=== PATIENT | female | born 1930 | race Caucasian/White ===

== ENCOUNTER 2016-08-20 13:09 | Emergency (ER) | payer MEDICARE, OTHER ==
[2016-08-20 13:32] VITALS: BP 106/57
[2016-08-20] MEDS ORDERED: Acetaminophen Soln 650 MG/20.3 ML UD Cup PO ONE (13:56)
--- NOTE | 2016-08-20 13:56 | EDM.PDOC ---
ED HPI HEAD INJURY - General Chief Complaint: Head Injury Stated Complaint: FALL/HEAD INJURY Time Seen by Provider: 08/20/16 13:38 Source of Information: Reports: Patient - History of Present Illness INITIAL COMMENTS - FREE TEXT/NARRATIVE: Patient reports tripping over a rug around 0900hrs today. She fell forward, landing on her knees and then hitting her head. She denies LOC. Currently anticoagulated with Eliquis for atrial fibrillation. Her [id number] noticed the significant contusion a few hours later while patient was preparing lenten lunch at [facility]. Patient reports knee pain, worse on the right. Denies headache, N/V, dizziness or change in vision. - Related Data Allergies/ADRs: Allergies Allergy/AdvReac Type Severity Reaction Status Date / Time No Known Allergies Allergy Verified 11/17/13 14:37 Home Meds: Home Meds Acetaminophen [Tylenol] 1 tab PO ASDIRECTED PRN 01/23/14 [History] Aspirin [Halfprin] 1 tab PO DAILY 01/23/14 [History] Lisinopril [Zestril] 1 tab PO DAILY 01/23/14 [History] Metoprolol Tartrate 1 tab PO BID 01/23/14 [History] Omeprazole [Prilosec] 1 tab PO DAILY 01/23/14 [History] Ondansetron [Zofran] 4 mg BUCCAL Q6H PRN #15 tab 01/23/14 [Rx] Social & Family History - Tobacco Use Smoking Status *Q: Never Smoker Second Hand Smoke Exposure: No - Alcohol Use Days Per Week of Alcohol Use: 0 - Recreational Drug Use Recreational Drug Use: No ED ROS GENERAL - Review of Systems Review Of Systems: See Below Constitutional: Reports: no symptoms HEENT: Denies: Ear discharge, Nosebleed, Vision change Respiratory: Reports: No Symptoms Cardiovascular: Reports: No symptoms Musculoskeletal: Reports: joint pain (Bilateral knee pain. ) Skin: Reports: lumps (Contusion to forehead ) Neurological: Denies: Confusion, Dizziness, Headache, Numbness, Syncope, Tingling Hematologic/Lymphatic: Reports: other (She is on Eliquis for atrial fibrillation.) ED EXAM, HEAD INJURY - Physical Exam Exam: See Below Exam Limited By: No limitations General Appearance: alert, WD/WN, no apparent distress Head: scalp lacerations, scalp ecchymosis, scalp hematoma, scalp tenderness Eyes: bilateral eye: PERRL Ears: normal external exam, normal canal, normal TMs Nose: normal inspection, normal mucousa, dried blood (Dried blood.) Respiratory: no respiratory distress, normal breath sounds Cardiovascular: normal peripheral pulses, irregularly irregular Extremities: normal range of motion, tenderness (Bilateral knee swelling and tenderness, R>L. Anterior bruising. FROM bilaterally.) Neurologic: normal mood/affect, oriented x 3 Skin: Normal color, Warm/dry, Other (Laceration to left forehead. ) - Aurora Coma Score Best Eye Response (Nikos): (4) open spontaneously Best Verbal Response (Aurora): (5) oriented Best Motor Response (Aurora): (6) obeys commands ED LACERATION/WOUND & MAURA PROC - Laceration/Wound Repair Head Lac/wound length in cm: 1.5 Appearance: superficial Distal NVT: neuro & vascular intact Skin prep: saline Closed with: dermabond Tetanus status addressed: Yes Course - Vital Signs Last Recorded V/S: Last Vital Signs Temp 98.1 F 08/20/16 13:27 Pulse 65 08/20/16 15:10 Resp 18 08/20/16 13:27 BP 106/57 L 08/20/16 13:27 Pulse Ox 98 08/20/16 15:10 - Orders/Labs/Meds Meds: Medications Discontinued Medications Generic Name Dose Route Start Last Admin Trade Name Tiq PRN Reason Stop Dose Admin Acetaminophen 650 mg 08/20/16 13:56 08/20/16 14:14 Tylenol PO 08/20/16 13:57 650 mg ONETIME ONE Administration - Re-Assessments/Exams Free Text/Narrative Re-Assessment/Exam: Mild contusion to left knee. Xray of right knee obtained due to level of swelling and pain to joint line, this demonstrated soft tissue swelling and right knee prosthesis that is is proper alignment. Laceration to forehead repaired with dermabond. Neurologic exam was normal. CT head demonstrates senescent change, mild soft tissue hematoma within the frontal scalp and NO acute intracranial abnormality or skull fracture. Will discharge home, recommend Tylenol and ice for her knee as this took care of her pain here. Monitor for behavior changes, changes in vision, headache or dizziness. She is to follow-up with PCP next week or return to ER if needed. Patient will be driven home by her [id number] today. 08/20/16 20:27 Departure - Departure Time of Disposition: 14:49 Disposition: Home, Self-Care 01 Condition: good Clinical Impression: Laceration Head injury Qualifiers: Encounter type: initial encounter Qualified Code(s): S09.90XA - Unspecified injury of head, initial encounter Injury of right knee Qualifiers: Encounter type: initial encounter Qualified Code(s): S89.91XA - Unspecified injury of right lower leg, initial encounter Instructions: Knee Pain, Head Injury, Adult, [id number], Laceration Care, Adult, [id number] Referrals: Ze Hsieh MD [Primary Care Provider] - Forms: ED Department Discharge Additional Instructions: Rest, activity as tolerated. Ice knee 15 minutes every 2-3 hours. Tylenol 650mg every 4-6 hours as needed for pain. If you should have dizziness, headache or other change you will need to be seen in the ER. Otherwise follow-up with Dr Hsieh in the clinic next week.
--- NOTE | 2016-08-20 14:38 | CR ---
Right knee: AP and lateral views of the right knee were obtained. Comparison: No previous right knee study other than exam obtained prior to prosthesis placement dated 02/11/09. Right knee prosthesis is seen. Components are aligned. Soft tissue swelling is seen anteriorly. Vascular calcification is noted. No fracture or other bony abnormality is appreciated. Impression: 1. Soft tissue swelling. 2. Right knee prosthesis. 3. Nothing acute is identified on two-view right knee exam. Diagnostic code #2
--- NOTE | 2016-08-20 14:38 | CT ---
Head CT Technique: Multiple axial sections through the brain were obtained. Intravenous contrast was not utilized. Comparison: Previous head CT exam of 01/27/11. Findings: Ventricles along with basal cisterns and sulci over the convexities are moderately prominent. 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 No other abnormal parenchymal densities are seen. No evidence of intracranial hemorrhage. No midline shift or mass effect is seen. Atherosclerotic calcification seen within the vertebral vessels and within the carotid siphon. 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 Soft tissue hematoma seen within the frontal scalp. No calvarial fracture is seen. Impression: 1. Senescent change as described above. Senescent change has slightly progressed from previous exam. 2. Mild soft tissue hematoma within the frontal scalp. 3. No acute intracranial abnormality is seen. No skull fracture is identified. Diagnostic code #2
== END 2016-08-20 15:10 | disposition home or self-care (01) ==
LOC: JD.ED 13:09
DX: S09.90XA Unspecified injury of head, initial encounter (principal); S89.91XA Unspecified injury of right lower leg, initial encounter; Z79.82 Long term (current) use of aspirin; Z79.899 Other long term (current) drug therapy; W18.09XA Striking against other object with subsequent fall, initial encounter
CPT/HCPCS: 12001; 70450; 73560; 99284; A9270; 99283